=== PATIENT | female | born 1960 | race Caucasian/White ===

== ENCOUNTER → 2017-04-19 | Outpatient (CLI) | payer MEDICARE, MEDICAID ==
[~2017-04-19] MED LIST: PHN100C; POLY-VI-SOL W/I50 ML
--- NOTE | 2017-04-19 12:04 | Diagnostic Imaging Report ---
PROCEDURE: CT head without contrast. TECHNIQUE: Multiple contiguous axial images were obtained through the brain without the use of intravenous contrast. INDICATION: Altered mental status. FINDINGS: There is no intracranial hemorrhage, edema or mass effect. The brain parenchyma and díaz-white differentiation is preserved. No hydrocephalus. No extra-axial fluid collection is seen. Calvarium, and orbits appear grossly unremarkable. There is mucosal thickening in the maxillary sinuses and ethmoidal air cells. This appears similar to 01/10/2016 exam. IMPRESSION: No intracranial abnormality. Chronic sinus disease. Dictated by: Dictated on workstation # [id number]
== END ==
LOC: RAD 08:26
PROVIDERS: ATTEND Family Medicine
DX: J32.0 Chronic maxillary sinusitis (principal); R41.82 Altered mental status, unspecified
CPT/HCPCS: 70450

== ENCOUNTER 2018-01-05 14:48 | Emergency (ER) | payer MEDICARE, MEDICAID ==
[~2018-01-05] VITALS: Ht 165.1 cm; Wt 63.5 kg
[2018-01-05] MEDS ORDERED: AMOX-358 PO ×2 (15:25→16:03)
--- NOTE | 2018-01-05 15:26 | ED Lower Extremity ---
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 No known injury or falls.. No fevers or chills. Onset: just prior to arrival Pain/Injury Location: left ankle Modifying Factors: Worse With Movement Allergies and Home Medications Allergies Coded Allergies: No Known Drug Allergies (Verified Allergy, Mild, 02/25/09) Home Medications Amoxicillin/Potassium Clav 1 Each Tablet, 1 EACH PO BID Prescribed by: МАРИНА LYONS on 01/05/18 1284 Patient Home Medication List Home Medication List Reviewed: Yes Constitutional: see HPI EENTM: see HPI Respiratory: no symptoms reported Cardiovascular: no symptoms reported Genitourinary: no symptoms reported Musculoskeletal: see HPI Skin: see HPI Psychiatric/Neurological: No Symptoms Reported Past Obzjwkm-Csmjfe-Qdbjae Hx Patient Social History Recent Foreign Travel: No Contact w/Someone Who Travel: No Physical Exam Vital Signs Capillary Refill : Height, Weight, BMI Height: '" Weight: lbs.oz.kg; BMI Method: General Appearance: WD/WN, no apparent distress HEENT: PERRL/EOMI, normal ENT inspection Neck: non-tender, full range of motion Respiratory: normal breath sounds, no respiratory distress, no accessory muscle use Gastrointestinal: normal bowel sounds, non tender Hips: bilateral hip normal inspection, bilateral hip normal range of motion Legs: bilateral leg non-tender, bilateral leg normal inspection Knees: bilateral knee non-tender, bilateral knee normal inspection, bilateral knee normal range of motion Ankles: left ankle soft tissue tenderness, left ankle swelling, left ankle other (eerythema and swelling to the lateral aspect of the left ankle. No lymphangitis. No induration or fluctuant abscess. No open wounds.) Neurologic/Psychiatric: alert, normal mood/affect, oriented x 3 Skin: normal color, warm/dry Progress/Results/Core Measures Results/Orders My Orders Orders - МАРИНА LYONS APRN Ankle, Left, 3 Views (01/05/18 15:20) Ceftriaxone Injection (Rocephin Injectio (01/05/18 15:30) Lidocaine 1% Inj 20 Ml (Xylocaine 1% Inj (01/05/18 15:30) Medications Given in ED Current Medications Medications Dose Ordered Sig/Jase Route Start Time Stop Time Status Last Admin Dose Admin Ceftriaxone Sodium 1,000 mg ONCE ONCE IM 01/05/18 15:30 01/05/18 15:31 DC 01/05/18 15:38 1,000 MG Lidocaine HCl 2.1 ml ONCE ONCE INJ 01/05/18 15:30 01/05/18 15:31 DC 01/05/18 15:38 2.1 ML Diagnostic Imaging Diagonstic Imaging: Xray Comments NAME: ANGELIKA VALADEZ [facility] REC#: [id number] PT STATUS: REG ER : 1960 PHYSICIAN: МАРИНА LYONS APRN ADMIT DATE: 01/05/18/ER Draft Date of Exam:01/05/18 ANKLE, LEFT, 3 VIEWS INDICATION: Left ankle redness and swelling. TIME OF EXAM: 3:31 PM Three views of the left ankle were obtained. FINDINGS: Ankle alignment is normal. Ankle mortise is well maintained. The talar dome is smooth. Moderate soft tissue swelling about the ankle is seen. The oblique view does demonstrate features suspicious for fracture through the lateral process of the talus. Clinical correlation to trauma is recommended. There is a large plantar calcaneal spur. IMPRESSION: Ankle swelling and questionable fracture of lateral process of the talus. Clinical correlation to recent trauma is recommended. CT of the left ankle may be useful for further characterization. Dictated on workstation # [id number] Dict: 01/05/18 1546 Trans: 01/05/18 1551 [facility] [id number] Interpreted by: LOAN GODFREY MD Electronically signed by: Departure Communication (Admissions) patient was given a walking boot Impression Primary Impression: Cellulitis of left ankle Additional Impression: questionable fracture lateral talus Disposition: 01 HOME, SELF-CARE Condition: Stable Departure-Patient Inst. Decision time for Depature: 15:24 Referrals: NATANAEL TOSCANO DO (PCP/Family) Primary Care Physician Patient Instructions: Cellulitis (Skin Infection), Adult (DC) Add. Discharge Instructions: 1. Follow-up with Dr. Dr. Toscano later this week for recheck. Return to ER for any concerns 2. Antibiotic as directed starting tomorrow morning. This may get a little worse throughout the remainder of the day today before getting better. 3. I suspect this is related to infection and not injury such as fracture. Either way, wear the boot until you follow up with Dr. Dr. Toscano Scripts Amoxicillin/Potassium Clav (Augmentin 875-125 Tablet) 1 Each Tablet 1 EACH PO BID, #14 TAB . Prov: МАРИНА LYONS APRN 01/05/18 Copy Copies To 1: NATANAEL TOSCANO PETER J APRN Jan 05, 2018 15:26
[2018-01-05] MEDS ORDERED: cefTRIAXone 1 GM (ROCEPHIN) VIAL IM ONE (15:30)
[2018-01-05] MEDS ORDERED: LIDOCAINE 1% INJ 20 ML 20 ML VIAL INJ ONE (15:30)
--- NOTE | 2018-01-05 15:52 | Diagnostic Imaging Report ---
INDICATION: Left ankle redness and swelling. TIME OF EXAM: 3:31 PM Three views of the left ankle were obtained. FINDINGS: Ankle alignment is normal. Ankle mortise is well maintained. The talar dome is smooth. Moderate soft tissue swelling about the ankle is seen. The oblique view does demonstrate features suspicious for fracture through the lateral process of the talus. Clinical correlation to trauma is recommended. There is a large plantar calcaneal spur. IMPRESSION: Ankle swelling and questionable fracture of lateral process of the talus. Clinical correlation to recent trauma is recommended. CT of the left ankle may be useful for further characterization. Dictated by: Dictated on workstation # [id number]
[2018-01-05 16:18] VITALS: BP 118/78
== END 2018-01-05 16:18 | disposition home or self-care (01) ==
LOC: EDUNIT# 14:48 → ER 14:50
DX: L03.116 Cellulitis of left lower limb (principal)
CPT/HCPCS: 73610; 96372

== ENCOUNTER → 2018-10-03 | Outpatient (CLI) | payer MEDICARE, MEDICAID ==
[~2018-10-03] MED LIST changes: +AMOX-358 PO
--- NOTE | 2018-10-04 10:04 | Diagnostic Imaging Report ---
EXAMINATION: Digital mammogram bilateral screening with 3D tomosynthesis and CAD. INDICATION: Screening. COMPARISON: This study is compared to the prior exams of 05/15/2015 and 05/10/2014. PERSONAL HISTORY: At this time, there are no current complaints. FINDINGS: The fibroglandular tissue in both breasts is heterogeneously dense. This does limit the sensitivity of this exam. Overall, there does not appear to have been any significant change when compared to the prior study. No primary or secondary sign of malignancy is noted. IMPRESSION: 1. There is no evidence for malignancy. 2. The patient should have her annual bilateral screening mammogram on schedule in September 2019. ACR BI-RADS Category 1: Negative. Result letter will be mailed to the patient. Note: At least 10% of breast cancer is not imaged by mammography. Dictated by: Dictated on workstation # [id number]
== END ==
LOC: RAD 08:17
PROVIDERS: ATTEND Family Medicine
DX: Z12.31 Encounter for screening mammogram for malignant neoplasm of breast (principal)
CPT/HCPCS: 77067

== ENCOUNTER → 2020-10-17 | Outpatient (CLI) | payer MEDICARE, MEDICAID ==
--- NOTE | 2020-10-18 12:20 | Diagnostic Imaging Report ---
INDICATION: Routine screening. Comparison is made with prior mammogram from 10/03/2018 and 05/10/2014. 2-D and 3-D bilateral screening mammography was performed with CAD. Both breast are heterogeneously dense, limiting the sensitivity of mammography. The parenchymal pattern is stable. No mass or malignant appearing microcalcifications are seen. Axillae are unremarkable. IMPRESSION: BI-RADS Category 1 No mammographic features suspicious for malignancy are identified. ACR BI-RADS Category 1: Negative. Result letter will be mailed to the patient. Note: At least 10% of breast cancer is not imaged by mammography. Dictated by: Dictated on workstation # [id number]
== END ==
LOC: RAD 14:58
PROVIDERS: ATTEND Family Medicine
DX: Z12.31 Encounter for screening mammogram for malignant neoplasm of breast (principal)
CPT/HCPCS: 77063; 77067

== ENCOUNTER → 2021-11-18 | Outpatient (CLI) | payer MEDICARE, MEDICAID ==
--- NOTE | 2021-11-18 15:05 | Diagnostic Imaging Report ---
Indication: Routine screening. Comparison is made with prior mammograms from 10/17/2020 and 10/03/2018. 2-D and 3-D bilateral screening mammography was performed with CAD. Both breasts are heterogeneously dense, limiting the sensitivity of mammography. No mass or malignant-appearing microcalcifications are seen. Axillae are unremarkable. IMPRESSION: BI-RADS Category 1 No mammographic features suspicious for malignancy are identified. ACR BI-RADS Category 1: Negative. Result letter will be mailed to the patient. Note: At least 10% of breast cancer is not imaged by mammography. Dictated by: Dictated on workstation # [id number]
== END ==
LOC: RAD 12:09
PROVIDERS: ATTEND Family Medicine
DX: Z12.31 Encounter for screening mammogram for malignant neoplasm of breast (principal)
CPT/HCPCS: 77063; 77067

== ENCOUNTER → 2022-11-19 | Outpatient (CLI) | payer MEDICARE, MEDICAID ==
--- NOTE | 2022-11-19 12:06 | Diagnostic Imaging Report ---
INDICATION: Routine screening. COMPARISON: 11/18/2021 and 10/17/2020. TECHNIQUE: 2D and 3D bilateral screening mammography was performed with CAD. FINDINGS: Both breasts are heterogeneously dense, limiting the sensitivity of mammography. No mass or malignant-appearing microcalcifications are seen. The axillae are unremarkable. IMPRESSION: No mammographic features suspicious for malignancy are identified. ACR BI-RADS Category 1: Negative. Result letter will be mailed to the patient. Note: At least 10% of breast cancer is not imaged by mammography. Dictated by: Dictated on workstation # [id number]
== END ==
LOC: RAD 10:15
PROVIDERS: ATTEND Family Medicine
DX: Z12.31 Encounter for screening mammogram for malignant neoplasm of breast (principal)
CPT/HCPCS: 77063; 77067